=== PATIENT | male | born 1950 | race Caucasian/White ===

== ENCOUNTER → 2024-03-05 | Outpatient (CLI) | payer OTHER | END | disposition home or self-care (01) | LOC: RESCLI 15:00 | PROVIDERS: ATTEND Family Medicine | DX: I25.10 Atherosclerotic heart disease of native coronary artery without angina pectoris (principal); E78.5 Hyperlipidemia, unspecified; I10 Essential (primary) hypertension; E78.2 Mixed hyperlipidemia; Z98.890 Other specified postprocedural states; Z87.891 Personal history of nicotine dependence; Z79.899 Other long term (current) drug therapy; Z88.0 Allergy status to penicillin; Z88.8 Allergy status to other drugs, medicaments and biological substances ==